=== PATIENT | female | born 1945 | race Native Hawaiian/Other Pacific Islander ===

== ENCOUNTER 2017-04-21 07:51 | Outpatient (CLI) | payer OTHER | END 2017-04-21 09:30 | disposition home or self-care (01) | LOC: NM 07:51 | DX: R06.02 Shortness of breath (principal); R53.83 Other fatigue; I51.89 Other ill-defined heart diseases | CPT/HCPCS: A9500; J2785 ==

== ENCOUNTER 2022-09-20 14:13 | Outpatient (CLI) | payer OTHER | END 2022-09-20 19:26 | disposition home or self-care (01) | LOC: CT 14:13 | PROVIDERS: ATTEND Physician Assistant | DX: R06.02 Shortness of breath (principal) | CPT/HCPCS: 36415; 82565; 84520; Q9963 ==

== ENCOUNTER 2022-10-06 12:24 | Outpatient (CLI) | payer OTHER | END 2022-10-06 21:38 | disposition home or self-care (01) | LOC: CT 12:24 | PROVIDERS: ATTEND Physician Assistant | DX: J18.1 Lobar pneumonia, unspecified organism (principal) ==